=== PATIENT | male | born 1970 | race Caucasian/White ===

== ENCOUNTER 2023-09-18 16:29 | Emergency (ER) | payer BC, SELFPAY ==
--- OUTSIDE RECORDS SUMMARY | 2023-09-18 16:33 | XMS REPORT | Continuity of Care Document ---
:1970 Author Organization [facility] t Address [address] [facility] [address] [place] [address] Care Team Providers Name Role Phone Asked, No Pcp Primary Care Physician Unavailable Danni HAWTHORNE, Karyna Attending Clinician Unavailable Rafiq BROOKS, Margoth Perdomo Attending Clinician Polly BROOKS, Lorri Sams Attending Clinician [phone] Joey BROOKS, Ning Attending Clinician Roxanne BROOKS, Hira Sahni Attending Clinician Anthony BROOKS, Nilsa Albert Attending Clinician [phone] Norberto Castillo CRNA Attending Clinician [phone] Misha Limon DPM Attending Clinician YARED JO JR Attending Clinician Unavailable Pob, [facility] Main Attending Clinician Unavailable Yared Jo DPM Attending Clinician Doctor Unassigned, [place] Attending Clinician Unavailable Edmundo James DO Attending Clinician EDMUNDO JAMES Attending Clinician Unavailable LORRI MATIAS Admitting Clinician Unavailable MD MARGOTH CONROY Admitting Clinician Unavailable Payers Payer Name Policy Type Policy Number Effective Date Expiration Date Catherine solis [facility] [id number] 2020 00:00:00 Problems Condition Condition Condition Status Onset Resolution Last Treating Co mments Source Name Details Category Date Date Treatment Clinician Date Abscess of Abscess of Disease Active M ethodi great toe great toe 1-16 st of right of right 00:00: Hospit a foot foot 00 l Cellulitis Cellulitis Disease Active M ethodi of foot of foot 1-12 st 00:00: Hospita 00 l No known No known Disease Unive rs active active ity of problems problems [facility] Allergies, Adverse Reactions, Alerts Allergy Allergy Status Severity Reaction(s) Onset Inactive Treating Comm ents Source Name Type Date Date Clinician NO KNOWN Drug Active Univers ALLERGIE Class ity of S [facility] Social History Social Habit Start Date Stop Date Quantity Comments Source Sexual orientation [facility] Exposure to Not sure University SARS-CoV-2 (event) [facility] History of Social 2022-11-21 2022-11-[address] function 00:00:00 00:00:00 Hospital Tobacco use and 2022-11-15 2022-11-15 Smokeless [facility] exposure 00:00:00 00:00:00 tobacco non-user Hospital Sex Assigned At [birth year] [facility] 00:00:00 00:00:00 Hospital Smoking Status Start Date Stop Date Source Never smoked tobacco [facility] Unknown if ever smoked [facility] Medications Ordered Filled Start Stop Current Ordering Indication Dosage Frequency Signature Comments Components Source Medication Medication Date Date Medication? Clinician (SIG) Name Name amLODIPine 2022- No 5mg QD Take 1 Meth mercedez (NORVASC) 5 - 02-20 tablet (5 st mg tablet 00:00: 05:59 mg total) Ho spita 00 :00 by mouth l daily for 30 days. sodium No 1000mg Q24H Infuse Method i chloride 11-22 1,[address] 0.9% 00:00: 05:59 into a Hospita parenteral 00 :00 venous l solution catheter 100 mL with daily for DAPTOmycin 14 days. (PF) 500 mg recon soln 1,000 mg insulin 2022- No 35U QD Inject Methodi GLARGINE 11-[address] (LANTUS) 00:00: 05:59 (35 Units Hos charlene 100 unit/mL 00 :00 total) l injection under the (vial) skin nightly for 30 days. insulin 2022- No 5U [id number] Inject M ethodi LISPRO 11-21 [id number] 0.05 mL (5 st (ADMELOG) 00:00: 05:59 3D Units Hospit a 100 unit/mL 00 :00 total) l subcutaneou under the s vial skin 3 (three) times a day with meals for 30 days. cefTRIAXone 2022- No 1g Q12H Infuse 1 g Methodi (ROCEPHIN) 11-[address] 1 gram in 00:00: 05:59 venous Hospi ta 50 mL 00 :00 catheter l Mini-Bag every 12 Plus (twelve) hours for 14 days. acetaminoph 2022- [place] 157[address] 1{tbl} Q4H Take 1 Methodi en-codeine 11-[address] (TYLENOL 00:00: 05:59 mouth Hospita WITH 00 :00 every 4 l CODEINE #3) (four) 300-30 mg hours as per tablet needed for moderate pain or severe pain for up to 5 days .acute pain. clindamycin 2020- No [id number] 300mg Take 2 Univers 150 mg 01-12 capsules ity of capsule 00:00: 04:59 by mouth 4 Amado as 00 :00 (four) Medical times [place] daily for 7 days. No known No Univers medications [facility] No known No Univers medications [facility] Vital Signs Vital Name Observation Time Observation Value Comments Source Systolic blood 2021-01-12 18:00:00 143 mm[Hg] [facility]iver [facility] Diastolic blood 2021-01-12 18:00:00 81 mm[Hg] [facility] Heart rate 2021-01-12 18:00:00 63 /min Universi [facility] Respiratory rate 2021-01-12 18:00:00 18 /min [facility] Oxygen saturation in 2021-01-12 18:00:00 96 /min [facility] Arterial blood by [facility] Pulse oximetry Branch Body temperature 2021-01-12 15:01:00 36.5 Cordelia [facility] Body weight 2021-01-12 15:01:00 136.079 kg [facility] Systolic blood 2022-11-21 21:26:46 150 mm[Hg] [facility] pressure Diastolic blood 2022-11-21 21:26:46 81 mm[Hg] [facility] pressure Heart rate 2022-11-21 21:26:46 83 /min [facility] Body temperature 2022-11-21 21:26:46 36.56 Cordelia [facility] Respiratory rate 2022-11-21 21:26:46 16 /min [facility] Oxygen saturation in 2022-11-21 21:26:46 96 /min [facility] Arterial blood by Pulse oximetry Body height 2022-11-18 17:04:00 180.3 cm [facility] Body weight 2022-11-18 17:04:00 161.481 kg [facility] BMI 2022-11-18 17:04:00 49.65 kg/m2 [facility] Procedures Procedure Date / Time Performing Clinician Source Performed POC GLUCOSE 2022-11-21 23:33:[facility] 2022-11-21 17:36:00 [facility] POC GLUCOSE 2022-11-21 13:51:00 [facility] CREATINE KINASE, TOTAL 2022-11-21 10:15:00 Wilbur Samaniego [facility] ([facility]) VANCOMYCIN LEVEL, TROUGH 2022-11-21 10:12:00 Misha Limon [facility] CREATININE LEVEL 2022-11-21 10:12:00 Wilbur Samaniego H ospital ESTIMATED GFR 2022-11-21 10:12:00 Wilbur Samaniego Ho spital POC GLUCOSE 2022-11-21 01:34:00 Hira Oliveira [facility] VENIPUNC NEED PHYS 2022-11-20 23:53:12 [facility] RX POC GLUCOSE 2022-11-20 23:17:00 [facility] POC GLUCOSE 2022-11-20 17:33:00 Oliveira, [facility] POC GLUCOSE 2022-11-20 13:20:00 Oliveira, [facility] POC GLUCOSE 2022-11-20 02:10:00 Oliveira, [facility] POC GLUCOSE 2022-11-19 22:30:00 Oliveira, [facility] POC GLUCOSE 2022-11-19 17:14:00 Oliveira, [facility] POC GLUCOSE 2022-11-19 13:17:00 [facility], [facility] CBC WITH PLATELET AND 2022-11-19 10:59:00 Bra[facility] DIFFERENTIAL BASIC METABOLIC PANEL 2022-11-19 10:59:00 Braxton [facility] ESTIMATED GFR 2022-11-19 10:59:[facility] 2022-11-19 02:07:00 [facility] POC GLUCOSE 2022-11-18 23:03:00 Oliveira, [facility] DURABLE MEDICAL 2022-11-18 22:11:28 [facility] EQUIPMENT POC GLUCOSE 2022-11-18 20:42:00 [facility] VANCOMYCIN LEVEL, TROUGH 2022-11-18 20:25:00 Braxton [facility] XR FOOT 3+ VW RIGHT 2022-11-18 20:00:57 Braxton [facility] SURGICAL PATHOLOGY 2022-11-18 19:46:00 Oliveira, [facility] REQUEST POC GLUCOSE 2022-11-18 18:49:00 Oliveira, [facility] ANAEROBIC CULTURE 2022-11-18 18:10:00 [facility] 2022-11-18 18:10[facility] 2022-11-18 18:10[facility] ANA[facility] 2022-11-18 18:09:00 [facility] FUNGUS CULTURE 2022-11-18 18:09:00 [facility] FUNGUS SMEAR 2022-11-18 18:09:00 [facility] TISSUE CULTURE 2022-11-18 18:09:00 [facility] NM AN ELECTIVE 2022-11-18 17:58:00 Norberto Castillo Ho spital SUPRAGLOTTIC AIRWAY Aruthur INCISION AND DRAINAGE, 2022-11-18 17:43:00 [facility] FOOT POC GLUCOSE 2022-11-18 13:54:00 [facility] CBC WITH PLATELET AND 2022-11-18 10:26:00 [facility] DIFFERENTIAL BASIC METABOLIC PANEL 2022-11-18 10:26:00 [facility] C-REACTIVE PROTEIN 2022-11-18 10:26:00 [facility] ESTIMATED GFR 2022-11-18 10:26:00 [facility] spital POC GLUCOSE 2022-11-18 01:58:00 [facility] POC GLUCOSE 2022-11-17 23:19:00 [facility] POC GLUCOSE 2022-11-17 21:56:00 [facility] CT LOWER EXTREMITY W WO 2022-11-17 21:36:18 Vladimir Gallegos [facility] CONTRAST RIGHT POC GLUCOSE 2022-11-17 17:10:00 [facility] POC GLUCOSE 2022-11-17 13:27:00 [facility] CBC WITH PLATELET AND 2022-11-17 11:15:00 [facility] DIFFERENTIAL BASIC METABOLIC PANEL 2022-11-17 11:15:00 [facility] C-REACTIVE PROTEIN 2022-11-17 11:15:00 [facility] ESTIMATED GFR 2022-11-17 11:15:00 [facility] VANCOMYCIN LEVEL, TROUGH 2022-11-17 04:09:00 Lorri Matias [facility] Latrell POC GLUCOSE 2022-11-17 03:04:00 [facility] POC GLUCOSE 2022-11-17 02:14:00 [facility] POC GLUCOSE 2022-11-16 23:03:00 [facility] POC GLUCOSE 2022-11-16 17:51:00 [facility] POC GLUCOSE 2022-11-16 13:17:00 [facility] CBC WITH PLATELET AND 2022-11-16 10:55:00 [facility] DIFFERENTIAL BASIC METABOLIC PANEL 2022-11-16 10:55:00 [facility] C-REACTIVE PROTEIN 2022-11-16 10:55:00 [facility] ESTIMATED GFR 2022-11-16 10:55:00 [facility] Ho spital POC GLUCOSE 2022-11-16 02:30:00 [facility] US DUPLEX VENOUS LOWER 2022-11-15 23:11:00 Jillian Rivera [facility] EXTREMITY BILATERAL Tajdin POC GLUCOSE 2022-11-15 22:54:00 [facility] US DUPLEX ARTERIAL LOWER 2022-11-15 22:41:00 Lorri Matias [facility] EXTREMITY RIGHT [place] VANCOMYCIN LEVEL, TROUGH 2022-11-15 22:17:00 Lorri Matias [facility] [place] URINALYSIS SCREEN AND 2022-11-15 20:58:00 Lorri Matias [facility] MICROSCOPY, WITH REFLEX [place] TO CULTURE URINE CULTURE 2022-11-15 20:58:00 Lorri Matias Ho spital [place] HEMOGLOBIN A1C 2022-11-15 17:08:00 UllahNing Ho spital LIPID PANEL 2022-11-15 17:08:00 Ning Cook Ho spital POC GLUCOSE 2022-11-15 17:08:00 Ning Cook Ho spital MRI FOOT WO CONTRAST 2022-11-15 16:26:33 Lorri Matias [facility] RIGHT [place] BLOOD CULTURE, AEROBIC & 2022-11-15 13:50:00 Lorri Matias [facility] ANAEROBIC [place] LACTIC ACID LEVEL - NOW 2022-11-15 13:50:00 [facility] AND REPEAT 2X EVERY 3 [place] HOURS VANCOMYCIN LEVEL, TROUGH 2022-11-15 13:50:00 MatiasLorri hood [facility] [place] POC GLUCOSE 2022-11-15 13:48:00 Ning Cook spital BLOOD CULTURE, AEROBIC & 2022-11-15 13:45:00 MatiasLorri hood [facility] ANAEROBIC [place] LACTIC ACID LEVEL - NOW 2022-11-15 [facility] EVERY 3 [place] HOURS POC GLUCOSE 2022-11-15 09:54:00 Lorri Matias spital [place] CBC WITH PLATELET AND 2022-11-15 09:47:00 Lorri Matias [facility] DIFFERENTIAL [place] COMPREHENSIVE METABOLIC 2022-11-15 09:47:00 [facility] PANEL [place] SEDIMENTATION RATE 2022-11-15 09:47:00 [facility] [place] CRP HIGH SENSITIVITY 2022-11-15 09:47:00 Lorri Matias [facility] [place] TYPE AND SCREEN 2022-11-15 09:47:00 Lorri Matias Ho spital [place] ESTIMATED GFR 2022-11-15 09:47:00 Lorri Matias spital [place] POC GLUCOSE 2022-11-15 07:52:00 Lorri Matias Ho spital [place] CONSULT TO OSTOMY CARE 2022-11-15 07:02:10 [facility] NURSE [place] BLOOD CULTURE, AEROBIC & 2022-11-15 03:20:00 [facility] ANAEROBIC COVID-19 QUALITATIVE 2022-11-15 03:20:00 Margoth Conroy [facility] RT-PCR XR FOOT 3+ VW RIGHT 2022-11-15 03:15:57 [facility] BLOOD CULTURE, AEROBIC & 2022-11-15 02:56:00 [facility] ANAEROBIC LACTIC ACID LEVEL - NOW 2022-11-15 02:55:00 [facility] AND REPEAT 2X EVERY 3 [place]atre[place] HOURS COMPREHENSIVE METABOLIC 2022-11-15 02:55:00 [facility] PANEL CBC WITH PLATELET AND 2022-11-15 02:55:00 [facility] DIFFERENTIAL B NATRIURETIC PEPTIDE 2022-11-15 02:55:00 [facility] TROPONIN T 2022-11-15 02:55:00 [facility] C-REACTIVE PROTEIN 2022-11-15 02:55:00 [facility] SEDIMENTATION RATE 2022-11-15 02:55:00 [facility] ESTIMATED GFR 2022-11-15 02:55:00 [facility] ASSIGNMENT OF BENEFITS 2021-05-10 15:45:28 Doctor Unassigned, No [facility] Name Medical Branch URINALYSIS 2021-01-12 15:24:00 Singer Edmundo [facility] XR FOOT <3 VW RIGHT 2021-01-12 15:20:47 Edmundo James [facility] COMP. METABOLIC PANEL 2021-01-12 15:11:00 Edmundo James [facility] ([id number]) [facility] CBC WITH DIFF 2021-01-12 15:11:00 Singer [facility] GLYCOSYLATED HEMOGLOBIN 2021-01-12 15:11:00 Singer [facility] (A1C) Medical Branch Plan of Care Planned Activity Planned Date Details Comments Source Future Scheduled 2023-08-31 Screening for [facility] Test 13:42:33 malignant neoplasm of colon (procedure) [code = 276881452] Future Scheduled 2023-08-31 Screening for [facility] Test 13:42:33 malignant neoplasm of colon (procedure) [code = 483252933] Future Scheduled 2023-08-31 Screening for [facility] Test 13:42:33 malignant neoplasm of colon (procedure) [code = 497558580] Future Scheduled 2023-08-31 Pneumococcal Vaccine: [facility] Test 13:42:33 Pediatrics (0 to 5 Years) and At-Risk Patients (6 to 64 Years) (1 - PCV) [code = Pneumococcal Vaccine: Pediatrics (0 to 5 Years) and At-Risk Patients (6 to 64 Years) (1 - PCV)] Future Scheduled 2023-08-31 Hepatitis C screening [facility] Test 13:42:33 (procedure) [code = 702926272] Future Scheduled 2023-08-31 Screening for [facility] Test 13:42:33 malignant neoplasm of colon (procedure) [code = 835445194] Future Scheduled 2023-08-31 [facility]ening for [facility] Test 13:42:33 malignant neoplasm of colon (procedure) [code = 628290194] Future Scheduled 2023-08-31 SHINGLES VACCINES (1 Met [facility] Test 13:42:33 of 2) [code = SHINGLES VACCINES (1 of 2)] Future Scheduled 2023-08-31 COVID-19 VACCINE (3 - [facility] Test 13:42:33 season) [code = COVID-19 VACCINE (3 - season)] Future Scheduled 2023-08-31 INFLUENZA VACCINE (#1) [facility] Test 13:42:33 [code = INFLUENZA VACCINE (#1)] Encounters Start End Encounter Admission Attending Care Care Encounter Source Date/Time Date/Time Type Type Clinicians Facility Department ID 2022-11-27 2022-11-27 Alivia Razo, 1.2.840.1 [id number] Methodi 00:00:00 00:00:[address] 3.430.2.7 Hospit a .3.570143 l .8 2022-11-14 2022-11-21 [facility] Margoth Conroy 1.2.840.1 1 [id number] Methodi 20:38:00 19:47:00 Encounter Lorri aMtias 00652.1.[address] Deidra, [facility] 3.430.2.7 Ho spita [facility] .3.582724 l .8 2022-11-14 2022-11-21 [facility] [id number] [place] [address] 00:00:00 00:00:[address] POYANI [address] 2022-11-20 2022-11-20 Travel 1.2.840.1 [id number] [id number] Methodi 00:00:00 00:00:[address] 3.430.2.7 0.2.7.3.698 Ho spita .3.107945 084.8 l .8 2022-11-18 2022-11-18 Anesthesia Nilsa Cruz 1.2.840. 1 [id number] Methodi 11:43:00 12:50:00 Event Norberto Castillo 47355.1.[address] 3.430.2.7 Hospit a .3.594560 l .8 2022-11-18 2022-11-18 Surgery Braxton, 1.2.840.1 [id number] Methodi 11:30:00 12:30:[address] 3.430.2.7 Hospit a .3.238712 l .8 2022-11-14 2022-11-14 Travel 1.2.840.1 1.2.885.608 [id number] Methodi 00:00:00 00:00:[address] 3.430.2.7 0.2.7.3.698 Ho spita .3.205309 084.8 l .8 2021-05-10 2021-05-10 Outpatient R MARTIN BENAVIDES, [facility] [id number] Univers 11:15:00 11:15:00 YARED carpenter [facility] 2021-05-10 2021-05-10 [employer] Lead Matilde Haines Lab Main [facility] 1.2.8 [id number] [id number] Univers 10:48:22 11:03:22 Visit Yared Jo 350.1.13.10 [place] [facility] [phone] La dical [facility] [address] [facility] 2021-05-10 2021-05-10 Orders Doctor SUSHMA 1.2.840.114 [id number] Univers 00:00:00 00:00:00 Only Unassigned, YOLANDA 350.1.13.10 ity [place] [facility] 4.2.7.2.686 Amado as [phone] [facility] [address] [place] 2021-01-12 2021-01-12 Emergency [facility] 1.2.309.679 [id number] Univers 08:58:00 12:53:00 Edmundo [place] 350.1.13.10 [place] [phone] [facility] [address] [place] 2021-01-12 2021-01-12 Emergency X [facility] ERT [id number] Univers 08:58:00 08:58:00 EDMUNDO sana [facility] Results Test Description Test Time Test Comments Results Result Comments Source Fungus culture 2022-12-17 01:22:00 Test Item Value Reference Range Interpretation Comme nts Fungus culture isolate No growth after 4 weeks of Specimen InformationSpecimen (test code = 580-1) incubation. Source: BoneSpecimen Site: Toe: Right great toe hallux bone for culture [facility] (Over 300 lbs)2022-11-26 18:45:43 Test Item Value Reference Range Interpretation Comments SUPPLIER NAME (test Gonzalez Medical Equipment code = 6415) SUPPLIER PHONE (test code = 9716) ORDER STATUS (test code Delivery Successful = 6417) DELIVERY NOTE (test please deliver to code = 6419) hospital REQUESTED DELIVEY DATE 11/18/2022 (test code = 6420) ITEM DESCRIPTION (test Heavy Duty Wheeled Qty: 1 code = 6423) Walker ACTUAL DELIVERY DATE 11/21/2022 (test code = 6422) [facility] [id number] 15:22:00 Test Item Value Reference Range Interpretation Comments Anaerobic No anaerobic Specimen culture isolate organisms InformationS pecimen (test code = isolated. Source: BoneSpe [facility] 90822-2) Site: Toe: Righ t great toe hallux bone for culture [facility] [id number] 23:35:00 Test Item Value Reference Range Interpretation Comments POC glucose (test code = 156 mg/dL 65-99 H Ope rator Name: 79384-6) Crescencio Serna vice ID: [id number] able: RN Notified Lab Interpretation (test Abnormal code = 77607-0) [facility] [id number] 20:10:09 Test Item Value Reference Range Interpretation Comments Case number (test code = [id number]) Surgical pathology See link below for report (test code = PDF Lab Report 2255) Result status (test code This is Final Report = [id number]) for [id number] [facility] [id number] 17:22:00 Test Item Value Reference Range Interpretation Comments Fungus smear No fungi Specimen (test code = observed. InformationSpec imen Source: 1443) TissueSpecimen Site: Toe: Right great toe soft tissue for culture [facility] [id number] 11:59:00 Test Item Value Reference Range Interpretation Comments Gram stain No WBC's or Specimen isolate (test organisms seen. Information Specimen code = 1469) Source: TissueS pecimen Site: Toe: Righ t great toe soft tissue for culture [facility] [id number] 21:35:00 Test Item Value Reference Range Interpretation Comments Urine culture (test SEE COMMENT Bacteriu dolly screen code = 0370134) negative. [facility] RNA [Presence] in Respiratory specimen by KAVITA with probe [id number] 22:15:27 Test Item Value Reference Range Interpretation Comments SARS-CoV-2 (COVID-19) RNA Not detected [Presence] in Respiratory specimen by KAVITA with probe detection (test code = 79956-5) Whether patient is employed in a Unknown healthcare setting (test code = 81399-1) Whether the patient has symptoms Unknown related to condition of interest (test code = 47146-1) Whether the patient was Unknown hospitalized for condition of interest (test code = 86762-3) Whether the patient was admitted Unknown to intensive care unit (ICU) for condition of interest (test code = 82852-0) Whether patient resides in a Unknown congregate care setting (test code = 02987-3) status (test code = Unknown 41557-9) Date and time of symptom onset Unknown (test code = 12120-5) [facility] VW [id number] 16:11:24 Edema overlying the fifth metatarsal and fifth MTP joint. Mild forefootedema. Focal erosion at the distal fifth metatarsal. This may be secondary toosteomyelitis or inflammatory arthropathy. 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 COMPARISON: ?None RESULT:There is edema overlying the fifth MTP and fifth metatarsal. There is mildforefoot edema. There is focal erosion at the distal first metatarsal. No evidence of acute fracture. There are mild degenerative changes of thefirst TMT joint, evidenced by osteophyte formation.Otherwise, thearticular surfaces are preserved. ? Os trigonum is noted. There is a small posterior and inferior calcanealenthesophyte present. - [facility], Radiant Results Inft User - 01/12/2021 10:12 AM CSTRIGHT FOOT X- RAYSHISTORY: Foot pain, concern for 5th MTP osteomyelitisOrdering physician: EDMUNDO KAPOORIQUE: 3 views of the right foot.COMPARISON: NoneRESULT:There is edema overlying the fifth MTPand fifth metatarsal. There is mildforefoot edema.There is focal erosion at the distal first metatarsal.No evidence of acute fracture. There are mild degenerative changes of thefirst TMT joint, evidenced by osteophyte formation. Otherwise, thearticular surfaces are preserved. Os trigonum is noted. There is a small posterior and inferior calcanealenthesophyte present.-IMPRESSIONEdema overlying the fifth metatarsal and fifth MTP joint. Mild forefootedema.Focal erosion at the distal fifth metatarsal. This may be secondary toosteomyelitis or inflammatory arthropathy.RL: 4[facility]. METABOLIC PANEL ([id number])2021-01-12 16:07:16 Test Item Value Reference Range Interpretation Comments NA (test code = 137 mmol/L 135-145 4218755314) K (test code = 3.5 mmol/L 3.5-5.0 0872146954) CL (test code = 102 mmol/L 98-108 7874141009) CO2 TOTAL (test code = 30 mmol/L 23-31 0148630425) AGAP (test code = 2-16 8692297446) BUN (test code = 18 mg/dL 7-23 7908802012) GLUCOSE (test code = 200 mg/dL 70-110 H 7827238772) CREATININE (test code = 0.70 mg/dL 0.60-1.25 7437919510) TOTAL BILI (test code = 0.4 mg/dL 0.1-1.8 9070328175) CALCIUM (test code = 8.1 mg/dL 8.6-10.6 L 3196011830) T PROTEIN (test code = 6.6 g/dL 6.3-8.2 1102013718) ALBUMIN (test code = 3.8 g/dL 3.5-5.0 8322033195) ALK PHOS (test code = 70 U/L 34-122 2753662585) ALTv (test code = 19 U/L 5-50 1742-6) AST(SGOT) (test code = 22 U/L 13-40 8727543077) eGFR Calculation mL/min/1.73m2 (Non-) (test code = 8628953461) eGFR Calculation mL/min/1.73m2 () (test code = 2710533954) ANA (test code = ANA) Association of Glomerular Filtration Rate (GFR) and Staging of Kidney Disease* + --+ --+ ------+| GFR (mL/min/1.73 m2) ?| With Kidney Damage ?| ?Without Kidney Damage+ --------+ --------+ +| ?>90 ?| ?Stage one ?| ? Normal ?+ ---+ ---+ -------+| ?60-89 ?| ?Stage two ?| ? Decreased GFR ? + --+ --+ ------+| ?30-59 ?| ?Stage three ?| ? Stage three ? + --+ --+ ------+| ?15-29 ?| ?Stage four ? | ? Stage four ?+ ---+ ---+ -------+| ?<15 (or dialysis) ? ?| ?Stage five ? | ? Stage five ?+ ---+ ---+ -------+ *Each stage assumes the associated GFR level has been in effect for at least three months. ?Stages 1 to 5, with or without kidney disease, indicate chronic kidney disease. Notes: Determination of stages one and two (with eGFR >59mL/min/1.73 m2) requires estimation of kidney damage for at least three months as defined by structural or functional abnormalities of the kidney, manifested by either:Pathological abnormalities or Markers of kidney damage (including abnormalities in the composition of the blood or urine or abnormalities in imaging tests). Lab Interpretation Abnormal (test code = 93065-0) [facility] Test Item Value Reference Range Interpretation Comments APPEARANCE (test code = Clear Clear 2630454512) COLOR (test code = Yellow Yellow 2135010908) PH (test code = 4.8-8.0 3523800306) SP GRAVITY (test code = 1.003-1.030 3966116854) GLU U QUAL (test code = 50 mg/dL Normal A 6819739524) BLOOD (test code = Negative Negative 7406941163) KETONES (test code = Negative Negative 8772762110) PROTEIN (test code = Negative Negative 2887-8) UROBILIN (test code = 2.0 mg/dL Normal A 5185106451) BILIRUBIN (test code = Negative Negative 4529101822) NITRITE (test code = Negative Negative 5872249091) LEUK GALEN (test code = Negative Negative 2039439451) RBC/HPF (test code = See_Comment [Autom ated message] 4921916424) The system [employer] generated this result transmit chandler reference range : 0 - 3 HPF. The refe rence range was not u sed to interpret th is result as normal/abnormal . WBC/HPF (test code = See_Comment [Autom ated message] 6109078270) The system [employer] generated this result transmit chandler reference range : 0 - 5 HPF. The refe rence range was not u sed to interpret th is result as normal/abnormal . BACTERIA (test code = Few Negative A 3307310524) MUCOUS (test code = Slight Negative LPF A 4758144337) SPERM (test code = See_Comment [Automat ed message] 7838564327) The system [employer] generated this result transmit chandler reference range : <=1 HPF. The refere nce range was not u sed to interpret th is result as normal/abnormal . Lab Interpretation (test Abnormal code = 96038-4) [facility]A1C)2021-01-12 15:58:43 Test Item Value Reference Range Interpretation Comments HGB A1C (test code = 7.9 % 4.0-6.0 H 4548-4) ANA (test code = ANA) %A1C (NGSP) Interpretation (ADA)4.8-5.6 ? ? Normal or (Non-Diabetic Range)5.7-6.4 ? ? Increased Risk (Pre-Diabetic)>6.5 ?Diabetes Indicated Lab Interpretation Abnormal (test code = 49082-9) [facility] [id number] 15:30:12 Test Item Value Reference Range Interpretation Comments WBC (test code = See_Comment [Automated 3390-2) message] The sy stem which generated this result transmitted reference range : 4.20 - 10.70 10*3/?L. The reference range was not used to interpret this result as normal/abnormal . RBC (test code = See_Comment [Automated 979-8) message] The sy stem which generated this result transmitted reference range : 4.26 - 5.52 10*6/?L. The reference range was not used to interpret this result as normal/abnormal . HGB (test code = 13.4 g/dL 12.2-16.4 718-7) HCT (test code = 41.5 % 38.4-49.3 4544-3) MCV (test code = 85.7 fL 81.7-95.6 787-2) MCH (test code = 27.7 pg 26.1-32.7 785-6) MCHC (test code = 32.3 g/dL 31.2-35.0 786-4) RDW-SD (test code = 43.0 fL 38.5-51.6 48726-6) RDW-CV (test code = 13.8 % 12.1-15.4 788-0) PLT (test code = See_Comment [Automated 777-3) message] The sy stem which generated this result transmitted reference range : 150 - 328 10*3/ ?L. The reference r alana was not used to interpret this result as normal/abnormal . MPV (test code = 9.1 fL 9.8-13.0 L 15576-0) NRBC/100 WBC (test See_Comment [Automat ed code = 7125335816) message] The system which generated this result transmitted reference range : 0.0 - 10.0 /100 WBCs. The refer ence range was not u sed to interpret th is result as normal/abnormal . NRBC x10^3 (test code <0.01 See_Comment [Auto mated = 6782259908) message] The s ystem which generated this result transmitted reference range : 10*3/?L. The reference range was not used to interpret this result as normal/abnormal . GRAN MAT (NEUT) % 64.0 % (test code = 770-8) IMM GRAN % (test code 0.30 % = 2586694669) LYMPH % (test code = 24.2 % 736-9) MONO % (test code = 7.4 % 5905-5) EOS % (test code = 3.0 % 713-8) BASO % (test code = 1.1 % 706-2) GRAN MAT x10^3(ANC) 5.05 10*3/uL 1.99-6.95 (test code = 1995209683) IMM GRAN x10^3 (test <0.03 0.00-0.06 code = 3286201506) LYMPH x10^3 (test code 1.91 10*3/uL 1.09-3.23 = 731-0) MONO x10^3 (test code 0.58 10*3/uL 0.36-1.02 = 742-7) EOS x10^3 (test code = 0.24 10*3/uL 0.06-0.53 711-2) BASO x10^3 (test code 0.09 10*3/uL 0.01-0.09 = 704-7) Lab Interpretation Abnormal (test code = 72200-8) [facility]"
[2023-09-18 17:53] LABS: Absolute Lymphocytes (CBC) 1.9 K/uL (0.7-4.9); Hematocrit 37.4 % (39.6-49.0); MCV 84.7 fL (80-100); MPV 6.5 fL (7.6-11.3); Platelets 274 thou/uL (152-406); RBC Red Blood Cell Count 4.41 M/uL (4.33-5.43)
[2023-09-18 17:57] LABS: Protime INR 1.05
[2023-09-18] MEDS ORDERED: VANCOMYCIN 1.5 GM in NA CHLORIDE 0.9% 500 ML IVPB ONE (18:00)
[2023-09-18] MEDS ORDERED: NA CHLORIDE 0.9% 100 ML ONE (18:01)
[2023-09-18] MEDS ORDERED: CEFTRIAXONE 1000 MG/VIAL ONE (18:01)
[2023-09-18 18:14] LABS: Albumin 3.5 g/dL (3.4-5.0); Bilirubin Total 0.5 mg/dL (0.2-1.0); Potassium 3.5 mEq/L (3.5-5.1); Protein, Total 7.5 g/dL (6.4-8.2)
--- NOTE | 2023-09-18 18:15 | RAD REPORT ---
[facility] CLINICAL HISTORY: wound infection COMPARISON: CHEST PA AND LAT 2 VIEW dated 01/15/2010; CHEST SINGLE VIEW dated 07/24/2003 TECHNIQUE: Portable AP view of the chest. FINDINGS: Decreased inspiratory effort limits evaluation. The lungs are clear. No pneumothorax or e ffusion. The cardiomediastinal contours are unremarkable. IMPRESSION: No acute cardiopulmonary process.
--- NOTE | 2023-09-18 18:19 | RAD REPORT ---
EXAM DESCRIPTION: RAD - Foot Right 3 View - 09/18/2023 5:32 pm CLINICAL HISTORY: infection;Swelling COMPARISON: FOOT AP LAT dated 04/20/2007 TECHNIQUE: Right foot, 3 views. 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 Moderate to advanc ed degenerative changes at the first metatarsal/ cuboid articulation. Irregularity with a corticated adjoining fragment along the superomedial aspect of the navicular, likely sequelae of chronic degener ative changes and/or trauma. No fracture, dislocation or periosteal reaction. Pronounced soft tissue swelling most notably in the medial and dorsal aspect of the forefoot and midf oot. IMPRESSION: Soft tissue swelling as above. No radiographic findings to suggest acute osteomyelitis.
--- NOTE | 2023-09-18 21:17 | ER ---
Nurse's Notes [facility] Name: Ronan Tavera Age: 53 yrs Sex: Male : 1970 Arrival Date: 09/18/2023 Time: 16:29 Bed 17 Private MD: Diagnosis: Type 2 diabetes mellitus with diabetic neuropathy, unspecified;Personal history of diabetic foot ulcer;Cellulitis of left toe-2nd and 3rd toes Presentation: 09/18 16:42 Chief complaint: Patient states: Wounds to toes on R foot x 1 week, swelling to R leg ph that started today, was seen at [facility] and told to come to ED, denies fever. Coronavirus screen: Vaccine status: Patient reports receiving the 2nd dose of the covid vaccine. Ebola Screen: No symptoms or risks identified at this time. Initial Sepsis Screen: Does the patient meet any 2 criteria? No. Patient's initial sepsis screen is negative. Does the patient have a suspected source of infection? Yes: Skin breakdown/wound. Risk Assessment: Do you want to hurt yourself or someone else? Patient reports no desire to harm self or others. Onset of symptoms was September 18, 2023. 16:42 Method Of Arrival: Ambulatory ph 16:42 Acuity: YUNIOR 3 ph Triage Assessment: 19:05 General: Behavior is calm, cooperative, appropriate for age. nw1 Historical: - Allergies: 16:44 No Known Allergies; ph - PMHx: 16:44 Hypertensive disorder; Diabetes mellitus; neuropathy; ph - Immunization history:: Adult Immunizations unknown. - Social history:: Smoking status: Patient denies any tobacco usage or history of. Screenin:00 [facility] ED Fall Risk Assessment (Adult) History of falling in the last 3 months, nw1 including since admission No falls in past 3 months (0 pts) Confusion or Disorientation No (0 pts) Intoxicated or Sedated No (0 pts) Impaired Gait Yes (1 pt) Mobility Assist Device Used No (0 pt) Altered Elimination No (0 pt) Score/Fall Risk Level 0 - 2 = Low Risk Oriented to surroundings, Maintained a safe environment, Educated pt \T\ family on fall prevention, incl call for assistance when getting out of bed, Assessed \T\ reinforced patient's understanding of fall precautions, Provided non-skid footwear, Hourly rounding (assess needs \T\ fall precautionary measures) done. 20:00 Abuse screen: Denies threats or abuse. Denies injuries from another. Nutritional nw1 screening: No deficits noted. Tuberculosis screening: No symptoms or risk factors identified. Assessment: 19:02 Reassessment: Patient and/or family updated on plan of care and expected duration. Pain nw1 level reassessed. Report received from AM nurse. Rounds made and introductions made. Pt placed in gown. Clothing placed in pt belonging bag. Pt noted receiving and tolerating Vancomycin. Call light in reach. Pt denies needs/wants at this time. 0 s/s of discomfort or acute distress noted. VSS. Will continue to monitor. 19:02 General: Appears. Pain: Denies pain. Cardiovascular: No deficits noted. Capillary nw1 refill < 3 seconds fingers NADIR in right foot.. Rhythm is sinus rhythm. Respiratory: No deficits noted. Airway is patent Respiratory effort is even, unlabored, relaxed, Respiratory pattern is regular, symmetrical. GI: Obese. Derm: Skin is fragile, has blisters on right 1st, 2nd, and 3rd toe. Noted swelling in all toes on right foot. Yellowish skin and drainage noted as well. Abscess located on plantar aspect of right first toe, plantar aspect of right second toe, plantar aspect of right third toe, plantar aspect of right fourth toe, plantar aspect of right fifth toe, Right first toenail, Right fifth toenail, Right second toenail, Right third toenail and Right fourth toenail Reports increased swelling and s/s of infection. 21:05 Reassessment: No changes from previously documented assessment. Patient and/or family nw1 updated on plan of care and expected duration. Pain level reassessed. Vital Signs: 16:42 BP 148 / 87; Pulse 86; Resp 18; Temp 98.4; Pulse Ox 100% on R/A; Weight 158.76 kg; ph Height 5 ft. 11 in. ; 17:30 BP 169 / 71; Pulse 58; Resp 16; Pulse Ox 100% on R/A; eh3 18:30 BP 134 / 69; Pulse 68; Resp 19; Pulse Ox 100% on R/A; eh3 19:07 BP 141 / 54; Pulse 74; Resp 17 S; Pulse Ox 98% on R/A; nw1 19:15 BP 134 / 54; Pulse 64; Resp 16 S; Pulse Ox 100% on R/A; nw1 20:00 BP 136 / 60; Pulse 61; Resp 17; Pulse Ox 100% on R/A; nw1 20:45 BP 119 / 56; Pulse 61; Resp 16; Pulse Ox 98% ; nw1 16:42 Body Mass Index 48.81 (158.76 kg, 180.34 cm) ph Helena Coma Score: 19:02 Eye Response: spontaneous(4). Motor Response: obeys commands(6). Verbal Response: nw1 oriented(5). Total: 15. ED Course: 16:34 Patient arrived in ED. im 16:41 Carla Pettit FNP-C is PHCP. snw 16:41 Cristopher Packer MD is Attending Physician. snw 16:44 Triage completed. ph 16:45 Arm band placed on Patient placed in an exam room. ph 16:56 Estrella Rachel, MARINE is Primary Nurse. eh3 17:22 Chest Single View XRAY In Process Unspecified. EDMS 17:34 Foot Right 3 View XRAY In Process Unspecified. EDMS 20:00 Patient has correct armband on for positive identification. Placed in gown. Bed in low nw1 position. Call light in reach. Side rails up X2. Provided Education on: POC. 20:57 Blood Culture Adult (2) Sent. nw1 21:52 No provider procedures requiring assistance completed. IV discontinued, intact, nw1 bleeding controlled, No redness/swelling at site. Pressure dressing applied. Administered Medications: 17:45 Drug: Rocephin IV 1 grams IV at calculated rate once; Given slow IV push per pharmacy eh3 instructions Route: IV; Rate: calculated rate; Site: left antecubital; 18:00 Follow up: Response: No adverse reaction; IV Status: Completed infusion; IV Intake: 91pbdf4 20:57 Follow up: Response: No adverse reaction; IV Status: Completed infusion nw1 18:35 Drug: vancoMYCIN IVPB 1.5 grams IVPB at calculated rate once Route: IVPB; Rate: eh3 calculated rate; Site: left antecubital; 20:56 Follow up: Response: No adverse reaction; IV Status: Completed infusion nw1 Medication: 19:15 VIS not applicable for this client. nw1 Intake: 18:00 IV: 50ml; Total: 50ml. eh3 Outcome: 21:16 Discharge ordered by MD. peterson 21:52 Discharged to home ambulatory, nw1 21:52 Condition: good 21:52 Discharge instructions given to patient, Instructed on discharge instructions, follow up and referral plans. medication usage, wound care, Demonstrated understanding of instructions, follow-up care, medications, wound care, Prescriptions given X 3, 21:58 Patient left the ED. nw1 Signatures: Dispatcher [employer] EDMS Carla Pettit, ACCOUNTS PAYABLE CLERK-C ACCOUNTS PAYABLE CLERK-CsnNay Arechiga, MARINE RN Estrella Rachel RN RN 3 Kasey Lowery Nicole, RN RN nw1 Corrections: (The following items were deleted from the chart) 21:06 21:05 BP 119 / 56; Pulse 61bpm; Resp 16bpm; Pulse Ox 98%; nw1 nw1
--- NOTE | 2023-09-18 21:17 | EDPHYS ---
Physician Documentation [facility] Name: Ronan Tavera Age: 53 yrs Sex: Male : 1970 Arrival Date: 09/18/2023 Time: 16:29 Bed 17 Private MD: ED Physician Cristopher Packer HPI: 09/18 16:53 This 53 yrs old Male presents to ER via Ambulatory with complaints of Wound Infection - snw right foot, Leg Swelling. 16:53 Associated signs and symptoms: Pertinent positives: pt not taking regular meds x 1 snw month 2nd to finances. partial amp of right great toe Nov or Dec of this year. The patient has not recently seen a physician, used to see Dr. Diallo. Historical: - Allergies: 16:44 No Known Allergies; ph - PMHx: 16:44 Hypertensive disorder; Diabetes mellitus; neuropathy; ph - Immunization history:: Adult Immunizations unknown. - Social history:: Smoking status: Patient denies any tobacco usage or history of. ROS: 16:53 Constitutional: Negative for fever, chills, and weight loss, Eyes: Negative for injury, snw pain, redness, and discharge, ENT: Negative for injury, pain, and discharge, Neck: Negative for injury, pain, and swelling, Cardiovascular: Negative for chest pain, palpitations, and edema, Respiratory: Negative for shortness of breath, cough, wheezing, and pleuritic chest pain, Abdomen/GI: Negative for abdominal pain, nausea, vomiting, diarrhea, and constipation, Back: Negative for injury and pain, : Negative for injury, bleeding, discharge, and swelling, MS/Extremity: Negative for injury and deformity, + neuropathy Neuro: Negative for headache, weakness, numbness, tingling, and seizure, Psych: Negative for depression, anxiety, suicide ideation, homicidal ideation, and hallucinations, 16:53 Skin: Positive for cellulitis, right 2nd and 3rd toes with peeling and redness x 1 week. Pt using medi honey and vashe wound care wash. Noted intense worsening post H2O2 soak last night, Exam: 16:52 Skin: cellulitis, that is severe, on the right second toe, right third toe, Right snw second toenail and Right third toenail, pityriasis rosea, on the right lower leg, 16:53 Constitutional: This is a well developed, well nourished patient who is awake, alert, snw and in no acute distress. Head/Face: Normocephalic, atraumatic. Eyes: Pupils equal round and reactive to light, extra-ocular motions intact. Lids and lashes normal. Conjunctiva and sclera are non-icteric and not injected. Cornea within normal limits. Periorbital areas with no swelling, redness, or edema. ENT: Nares patent. No nasal discharge, no septal abnormalities noted. Tympanic membranes are normal and external auditory canals are clear. Oropharynx with no redness, swelling, or masses, exudates, or evidence of obstruction, uvula midline. Mucous membranes moist. Neck: Trachea midline, no thyromegaly or masses palpated, and no cervical lymphadenopathy. Supple, full range of motion without nuchal rigidity, or vertebral point tenderness. No Meningismus. Chest/axilla: Normal chest wall appearance and motion. Nontender with no deformity. No lesions are appreciated. Cardiovascular: Regular rate and rhythm with a normal S1 and S2. No gallops, murmurs, or rubs. Normal PMI, no JVD. No pulse deficits. Respiratory: Lungs have equal breath sounds bilaterally, clear to auscultation and percussion. No rales, rhonchi or wheezes noted. No increased work of breathing, no retractions or nasal flaring. Abdomen/GI: Soft, non-tender, with normal bowel sounds. No distension or tympany. No guarding or rebound. No evidence of tenderness throughout. Back: No spinal tenderness. No costovertebral tenderness. Full range of motion. MS/ Extremity: Pulses equal, no cyanosis. Neurovascular intact. Full, normal range of motion. Neuro: Awake and alert, GCS 15, oriented to person, place, time, and situation. Cranial nerves II-XII grossly intact. Motor strength 5/5 in all extremities. Sensory grossly intact. Cerebellar exam normal. Normal gait. Psych: Awake, alert, with orientation to person, place and time. Behavior, mood, and affect are within normal limits. Vital Signs: 16:42 BP 148 / 87; Pulse 86; Resp 18; Temp 98.4; Pulse Ox 100% on R/A; Weight 158.76 kg; ph Height 5 ft. 11 in. ; 17:30 BP 169 / 71; Pulse 58; Resp 16; Pulse Ox 100% on R/A; eh3 18:30 BP 134 / 69; Pulse 68; Resp 19; Pulse Ox 100% on R/A; eh3 19:07 BP 141 / 54; Pulse 74; Resp 17 S; Pulse Ox 98% on R/A; nw1 19:15 BP 134 / 54; Pulse 64; Resp 16 S; Pulse Ox 100% on R/A; nw1 20:00 BP 136 / 60; Pulse 61; Resp 17; Pulse Ox 100% on R/A; nw1 20:45 BP 119 / 56; Pulse 61; Resp 16; Pulse Ox 98% ; nw1 16:42 Body Mass Index 48.81 (158.76 kg, 180.34 cm) ph Helena Coma Score: 19:02 Eye Response: spontaneous(4). Motor Response: obeys commands(6). Verbal Response: nw1 oriented(5). Total: 15. MDM: 16:45 Patient medically screened. snw 16:58 Differential diagnosis: bacterial infection, osteomyelitis. Data reviewed: vital signs, snw nurses notes, lab test result(s), radiologic studies. Consideration of Admission/Observation Escalation of care including admission/observation considered. requires IV abx. 18:29 Care significantly affected by the following chronic conditions: Diabetes, snw Hypertension. Counseling: I had a detailed discussion with the patient and/or guardian regarding the historical points, exam findings, and any diagnostic results supporting the discharge/admit diagnosis, the presence of at least one elevated blood pressure reading (>120/80) during this emergency department visit, lab results, radiology results, the need for outpatient follow up, for definitive care, a general surgeon. Special discussion: Based on the history and exam findings, there is no indication for further emergent testing or inpatient evaluation. wound care. 18:30 I considered the following discharge prescriptions or medication management in the [facility] emergency department Medications were administered in the Emergency Department. See MAR Pt with normal vs, normal labwork, has vashe and medi honey at home. Will discuss outpatient wound care eval. [facility] [phone]. 20:02 Response to treatment: the patient's symptoms have mildly improved after treatment. ED snw course: pt to use Vashe BID, continue medi honey, start back on metformin, f/u Wound care Friday. Return precautions discussed and pt voices understanding. 09/18 16:52 Order name: Blood Culture Adult (2) snw 09/18 16:52 Order name: CBC with Diff; Complete Time: 17:56 snw 09/18 16:52 Order name: CMP; Complete Time: 18:18 snw 09/18 16:52 Order name: Lactate w/ 2H reflex if indic.; Complete Time: 18:18 snw 09/18 16:52 Order name: Protime (+inr); Complete Time: 18:00 snw 09/18 16:52 Order name: Ptt, Activated; Complete Time: 18:00 snw 09/18 16:52 Order name: Chest Single View XRAY; Complete Time: 18:18 snw 09/18 16:52 Order name: Foot Right 3 View XRAY; Complete Time: 18:20 snw 09/18 16:52 Order name: EKG; Complete Time: 16:53 snw 09/18 16:52 Order name: Accucheck; Complete Time: 17:14 snw 09/18 16:52 Order name: Cardiac monitoring; Complete Time: 17:14 snw 09/18 16:52 Order name: EKG - Nurse/Tech; Complete Time: 17:45 snw 09/18 16:52 Order name: IV Saline Lock - Large Bore; Complete Time: 17:45 snw 09/18 16:52 Order name: Labs collected and sent; Complete Time: 17:45 snw 09/18 16:52 Order name: O2 Per Protocol; Complete Time: 17:14 snw 09/18 16:52 Order name: O2 Sat Monitoring; Complete Time: 17:14 snw 09/18 16:52 Order name: Vital Signs; Complete Time: 17:14 snw EC:22 Rate is 64 beats/min. Rhythm is regular. QRS [place] is Normal. [place] interval is normal. QRS snw interval is normal. QT interval is normal. T waves are Flattened in leads V4, V5, V6. Clinical impression: NSR w/ Non-specific ST/T Changes. Administered Medications: 17:45 Drug: Rocephin IV 1 grams IV at calculated rate once; Given slow IV push per pharmacy eh3 instructions Route: IV; Rate: calculated rate; Site: left antecubital; 18:00 Follow up: Response: No adverse reaction; IV Status: Completed infusion; IV Intake: [id number] 20:57 Follow up: Response: No adverse reaction; IV Status: Completed infusion nw1 18:35 Drug: vancoMYCIN IVPB 1.5 grams IVPB at calculated rate once Route: IVPB; Rate: eh3 calculated rate; Site: left antecubital; 20:56 Follow up: Response: No adverse reaction; IV Status: Completed infusion nw1 Disposition: 21:59 Co-signature as Attending Physician, Cristopher Packer MD I reviewed the patient's care rt provided by the Advanced Practice Provider and agree with the diagnosis and treatment plan. Disposition Summary: 09/18/23 21:16 Discharge Ordered Notes: [facility] care center Location: Home snw Condition: Stable snw Diagnosis - Type 2 diabetes mellitus with diabetic neuropathy, unspecified snw - Personal history of diabetic foot ulcer snw - Cellulitis of left toe - 2nd and 3rd toes snw Followup: snw - With: Emergency Department - When: As needed - Reason: Worsening of condition Followup: snw - With: Private Physician - When: 1 - 2 days - Reason: Recheck today's complaints, Continuance of care, Re-evaluation by your physician Discharge Instructions: - Discharge Summary Sheet snw - Cellulitis, Adult snw - Type 2 Diabetes Mellitus, Diagnosis, Adult snw - Diabetes Mellitus and Foot Care snw - Diabetes Mellitus and Sick Day Management snw - Peripheral Neuropathy snw - Wound Care, Adult snw Forms: - Work release form snw - Medication Reconciliation Form snw - Thank You Letter snw - Antibiotic Education snw - Prescription Opioid Use snw - Patient Portal Instructions snw - Leadership Thank You Letter snw Prescriptions: - Cephalexin 500 mg Oral Capsule - take 1 capsule ORAL route every 8 hours for 10 days; 30 capsule; Refills: 0, snw Product Selection Permitted - Neurontin 300 mg Oral Capsule - take 1 capsule ORAL route At bedtime; 20 capsule; Refills: 0, Product Selection snw Permitted - Bactrim DS 800-160 mg Oral Tablet - take 1 tablet ORAL route every 12 hours for 7 days; 14 tablet; Refills: 0, snw Product Selection Permitted Signatures: Dispatcher [employer] Carla Rodarte FNP-C PERSONAL LINES ADVISOR-Csnw Nay Rachel RN RN Estrella Rachel RN RN 3 Cristopher Packer MD MD rt Tammi Lopez RN nw1 Corrections: (The following items were deleted from the chart) 18:43 18:30 I considered the following discharge prescriptions or medication management in snw the emergency department Medications were administered in the Emergency Department. See MAR Pt with normal vs, normal labwork, has vashe and medi honey at home. Will discuss outpatient wound care eval. [facility] [phone]. [facility]
[2023-09-18 22:02] VITALS: TEMP 98.4
[2023-09-18 22:12] VITALS: BP 119/56; O2SAT 98
--- NOTE | 2023-09-24 17:11 | EKG ---
Test Date: 2023-09-18 Test Time: 17:21:28 Grounds Restoration Specialist: ASHLEY MEASUREMENT RESULTS: Intervals: Rate: 64 NJ: 140 QRSD: 98 QT: 432 QTc: 445 Comfort: P: 50 NJ: 140 QRS: 59 T: 48 INTERPRETIVE STATEMENTS: Normal sinus rhythm Normal ECG No previous ECG available for comparison Electronically Signed On 09-24-23 16:56:53 ROD GREASER by Eric Musa
== END 2023-09-18 21:58 | disposition home or self-care (01) ==
LOC: ER 16:29
DX: L03.031 Cellulitis of right toe (principal); E11.40 Type 2 diabetes mellitus with diabetic neuropathy, unspecified; Z86.31 Personal history of diabetic foot ulcer
CPT/HCPCS: 36415; 71045; 80053; 83605; 85025; 85610; 85730; 87040; 93005; 96365; 96366; 96375; 99284; J0696; J7040

== ENCOUNTER 2024-02-26 16:51 | Emergency (ER) | payer BC ==
--- NOTE | 2024-02-26 18:16 | RAD REPORT ---
EXAM DESCRIPTION: US - Extremity Venous Uni Ltd - 02/26/2024 6:00 pm CLINICAL HISTORY: Pain, swelling COMPARISON: None. TECHNIQUE: Real-time sonographic evaluation of the right lower extremity deep venous system was perf ormed. FINDINGS: Normal compressibility, flow augmentation, phasic flow and spontaneous flow is identified in the right lower extremity deep venous system. No intraluminal filling defects seen. Enlarged righ t groin lymph node measuring 4 cm in short axis, with cortical thickening. IMPRESSION: No evidence of DVT in the right lower extremity. Large right groin lymph node as above. This is indeterminate, and infectious/inflammatory etiologies, as well as malignancy, are to be considered.
[2024-02-26 18:23] LABS: Absolute Basophils 0.1 K/uL (0-0.5); Absolute Eosinophils 0.1 K/uL (0-0.5); Absolute Lymphocytes (CBC) 1.6 K/uL (0.7-4.9); Absolute Monocytes 0.8 K/uL (0.1-1.3); Absolute Neutrophil 5.8 K/uL (1.8-8.0); Basophils % 0.9 % (0-1.3); Eosinophils % 1.6 % (0-4.4); Hematocrit 37.1 % (39.6-49.0); Hemoglobin 12.4 g/dL (13.6-17.9); Lymphocytes % 18.6 % (15.3-44.8); MCH 27.9 pg (27.0-35.0); MCHC 33.5 g/dL (32.0-36.0); MCV 83.2 fL (80-100); MPV 7.3 fL (7.6-11.3); Monocytes % 9.3 % (3.3-12.3); Neutrophils % 69.6 % (41.7-73.7); Nucleated Red Blood Cells % 0.1 % (0-0); Platelets 240 thou/uL (152-406); RBC Red Blood Cell Count 4.46 M/uL (4.33-5.43); Red Cell Distribution Width 15.2 % (12.1-15.2)
[2024-02-26 18:41] LABS: Anion Gap 8.1 mEq/L (5.0-15.0); Magnesium 1.8 mg/dL (1.6-2.4); Potassium 4.1 mEq/L (3.5-5.1)
[2024-02-26] MEDS ORDERED: CLINDAMYCIN 900MG/D5W 900 MG/50 ML IVPB IV ONE (19:09)
--- NOTE | 2024-02-26 19:43 | ER ---
Nurse's Notes [facility] Name: Ronan Tavera Age: 53 yrs Sex: Male : 1970 Arrival Date: 02/26/2024 Time: 16:51 Bed 19 Private MD: Diagnosis: Cellulitis of right lower limb Presentation: 02/25 17:01 Chief complaint: Patient states: R leg swelling that was noticed this morning. ss Coronavirus screen: Client denies travel out of the [place] in the last 14 days. Ebola Screen: Patient denies exposure to infectious person. Patient denies travel to an Ebola-affected area in the 21 days before illness onset. Initial Sepsis Screen: Does the patient meet any 2 criteria? No. Patient's initial sepsis screen is negative. Does the patient have a suspected source of infection? No. Patient's initial sepsis screen is negative. Risk Assessment: Do you want to hurt yourself or someone else? Patient reports no desire to harm self or others. Onset of symptoms was February 26, 2024. 17:01 Method Of Arrival: Ambulatory ss 17:01 Acuity: YUNIOR 3 ss Triage Assessment: 17:04 General: Appears in no apparent distress. comfortable, Behavior is calm, cooperative. ss Pain: Denies pain. Neuro: Level of Consciousness is awake, alert, obeys commands, Oriented to person, place, time, situation. Respiratory: Respiratory effort is even, unlabored. Historical: - Allergies: 17:04 No Known Allergies; ss - PMHx: 17:04 diabetes mellitus; Hypertensive disorder; neuropathy; ss - PSHx: 17:04 partial amputation of R 1st toe; hernia repair; ss - Immunization history:: Client reports receiving the 2nd dose of the Covid vaccine. - Infectious Disease History:: Denies. - Social history:: Smoking status: Patient denies any tobacco usage or history of. Screenin:25 [facility] ED Fall Risk Assessment (Adult) History of falling in the last 3 months, cp4 including since admission No falls in past 3 months (0 pts) Confusion or Disorientation No (0 pts) Intoxicated or Sedated No (0 pts) Impaired Gait No (0 pts) Mobility Assist Device Used No (0 pt) Altered Elimination No (0 pt) Score/Fall Risk Level 0 - 2 = Low Risk Oriented to surroundings, Maintained a safe environment, Assessed \T\ reinforced patient's understanding of fall precautions, Hourly rounding (assess needs \T\ fall precautionary measures) done. Abuse screen: Denies threats or abuse. Nutritional screening: No deficits noted. Tuberculosis screening: No symptoms or risk factors identified. Assessment: 18:25 General: Appears uncomfortable, Behavior is calm, cooperative, appropriate for age. cp4 Pain: Denies pain. Derm: Skin is red, Skin temperature is warm Reports swelling. Vital Signs: 17:01 BP 154 / 93; Pulse 95; Resp 18; Temp 99.1(O); Pulse Ox 98% on R/A; Weight 158.76 kg; ss Height 5 ft. 11 in. ; Pain 0/10; 19:14 BP 146 / 72; Pulse 89; Resp 18; Pulse Ox 98% ; cp4 17:01 Body Mass Index 48.81 (158.76 kg, 180.34 cm) ss 17:01 Pain Scale: Adult ss ED Course: 16:53 Patient arrived in ED. rg4 16:58 Homero Bryan PA is PHCP. cp 16:58 Richard Abebe MD is Attending Physician. cp 17:04 Triage completed. ss 17:04 Arm band placed on right wrist. ss 17:38 Patsy Robertson is Primary Nurse. cp4 18:02 US Extremity Venous Unilateral Ltd In Process Unspecified. EDMS 18:10 Basic Metabolic Panel Sent. jr12 18:10 CBC with Diff Sent. jr12 18:10 Magnesium Sent. jr12 18:10 Inserted saline lock: 20 gauge in right antecubital area, using aseptic technique. jr12 Blood collected. 18:25 Bed in low position. Call light in reach. Side rails up X 1. cp4 18:25 Assist provider with bone marrow aspiration. cp4 19:50 Provided Education on: cellulitis. cp4 19:50 intact, bleeding controlled, No redness/swelling at site. Pressure dressing applied. cp4 Administered Medications: 19:13 Drug: Clindamycin IVPB 900 mg IVPB once over 30 mins; (mix in 50 mL) Route: IVPB; cp4 Infused Over: 30 mins; Site: right antecubital; 19:51 Follow up: Response: No adverse reaction; IV Status: Completed infusion cp4 Medication: 18:25 VIS not applicable for this client. cp4 Outcome: 19:42 Discharge ordered by MD. cp 19:50 Discharged to home ambulatory, cp4 19:50 Condition: stable 19:50 Discharge instructions given to patient, Instructed on discharge instructions, follow up and referral plans. medication usage, Demonstrated understanding of instructions, follow-up care, medications, Prescriptions given X 3, 19:52 Patient left the ED. cp4 Signatures: Dispatcher [employer] EDMS Kassandra Lauren RN RN Homero Mosquera PA PA cp Garcia, Rubi rg4 Patsy Robertson cp4 Teresa Benton jr12
--- NOTE | 2024-02-26 19:43 | EDPHYS ---
Physician Documentation [facility] Name: Ronan Tavera Age: 53 yrs Sex: Male : 1970 Arrival Date: 02/26/2024 Time: 16:51 Bed 19 Private MD: ED Physician Richard Abebe Historical: - Allergies: 02/25 17:04 No Known Allergies; ss - PMHx: 17:04 diabetes mellitus; Hypertensive disorder; neuropathy; ss - PSHx: 17:04 partial amputation of R 1st toe; hernia repair; ss - Immunization history:: Client reports receiving the 2nd dose of the Covid vaccine. - Infectious Disease History:: Denies. - Social history:: Smoking status: Patient denies any tobacco usage or history of. Vital Signs: 17:01 BP 154 / 93; Pulse 95; Resp 18; Temp 99.1(O); Pulse Ox 98% on R/A; Weight 158.76 kg; ss Height 5 ft. 11 in. ; Pain 0/10; 19:14 BP 146 / 72; Pulse 89; Resp 18; Pulse Ox 98% ; cp4 17:01 Body Mass Index 48.81 (158.76 kg, 180.34 cm) ss 17:01 Pain Scale: Adult ss MDM: 17:09 Patient medically screened. cp 02/25 17:31 Order name: Basic Metabolic Panel; Complete Time: 18:59 cp 02/25 18:59 Interpretation: Normal except: GLUC 250; NA 134. cp 02/25 17:31 Order name: CBC with Diff; Complete Time: 18:59 cp 02/25 17:31 Order name: Magnesium; Complete Time: 18:59 cp 02/25 17:31 Order name: Lactate w/ 2H reflex if indic.; Complete Time: 18:59 cp 02/25 17:31 Order name: US Extremity Venous Unilateral Ltd; Complete Time: 18:59 cp 02/25 17:31 Order name: Cardiac monitoring; Complete Time: 17:39 cp 02/25 17:31 Order name: IV Saline Lock; Complete Time: 18:10 cp 02/25 17:31 Order name: Labs collected and sent; Complete Time: 18:10 cp 02/25 17:31 Order name: O2 Per Protocol; Complete Time: 17:39 cp 02/25 17:31 Order name: O2 Sat Monitoring; Complete Time: 17:39 cp Administered Medications: 19:13 Drug: Clindamycin IVPB 900 mg IVPB once over 30 mins; (mix in 50 mL) Route: IVPB; cp4 Infused Over: 30 mins; Site: right antecubital; 19:51 Follow up: Response: No adverse reaction; IV Status: Completed infusion cp4 Disposition Summary: 02/26/24 19:42 Discharge Ordered Notes: Location: Home cp Problem: new cp Symptoms: have improved cp Condition: Stable cp Diagnosis - Cellulitis of right lower limb cp Followup: cp - With: Private Physician - When: 2 - 3 days - Reason: Recheck today's complaints Discharge Instructions: - Discharge Summary Sheet cp - Cellulitis, Adult cp - Lymphangitis, Adult cp Forms: - Medication Reconciliation Form cp - Antibiotic Education cp - Prescription Opioid Use cp - Patient Portal Instructions cp - Leadership Thank You Letter cp Prescriptions: - Clindamycin HCl 300 mg Oral Capsule - take 1 capsule ORAL route every 6 hours for 10 days; 40 capsule; Refills: 0, cp Product Selection Permitted - Ibuprofen 800 mg Oral Tablet - take 1 tablet ORAL route every 8 hours As needed take with food; 30 tablet; cp Refills: 0, Product Selection Permitted - Bactrim DS 800-160 mg Oral Tablet - take 1 tablet ORAL route every 12 hours for 10 days; 20 tablet; Refills: 0, cp Product Selection Permitted Signatures: Dispatcher [employer] Kassandra Durham, RN RN Homero Mosquera PA PA cp Potter, Christina cp4
[2024-02-26 20:23] VITALS: BP 146/72; TEMP 99.1; O2SAT 98
== END 2024-02-26 19:52 | disposition home or self-care (01) ==
LOC: ER 16:51
DX: L03.115 Cellulitis of right lower limb (principal); E11.9 Type 2 diabetes mellitus without complications; I10 Essential (primary) hypertension
CPT/HCPCS: 36415; 80048; 83605; 83735; 85025; 93971